=== PATIENT | female | born 2000 | race Hispanic/Latino ===

== ENCOUNTER 2024-01-06 02:23 | Emergency (ER) | payer OTHER, SELFPAY ==
[2024-01-06 02:23] VITALS: BMI 36.1
[2024-01-06 02:28] VITALS: BP 137/84
[2024-01-06 02:38] VITALS: BP 110/77
--- NOTE | 2024-01-06 02:50 | ED.GENMED ---
History of Present Illness
<TRIPP Kamara - Last Filed: 01/06/24 06:13>
General
Chief Complaint: Abdominal Symptoms
Source: patient
Exam Limitations: none
Time Seen by Provider: 01/06/24 02:36
Nursing documentation reviewed up to this point in time: agreed with
History of Present Illness
History of Present Illness:
This is a 23 year old female who is currently 32 weeks , who presents to the ED c/o nausea and vomiting x 7 hours. Pt states she has had 4-5 episodes of emesis with associated diarrhea with each episode. She has also had intermittent
abdominal pain across her whole abdomen. Pt notes she has also had a JAMES and dizziness since her symptoms started. Pt has a doppler for heart tones at home and she recorded 192 bpm when she last checked. She also feels as though her baby is
moving a lot more than usual. She denies any fever, CP, SOB, dysuria, hematuria, constipation, or vaginal bleeding.
<Otilio Bejarano DO - Last Filed: 01/06/24 05:49>
Travel History
Have you had any contact with someone who has COVID-19?: No
Do you have any symptoms of coronavirus? Fever > 100 degrees, chills, cough, shortness of breath, sore throat, loss of taste or smell, muscle aches, or headache?: No
Past History
<TRIPP Kamara - Last Filed: 01/06/24 06:13>
Social History
Drug: None
<Otilio Bejarano DO - Last Filed: 01/06/24 05:49>
Past History
ED Past Medical History: Asthma
ED Past Surgical History: None
Social History
Tobacco: Non-smoker
Alcohol: None
Personal: Single
Living: with family
Employment: Employed
Review of Systems
<TRIPP Kamara - Last Filed: 01/06/24 06:13>
Review of Systems
Allergies reviewed?: Yes
All Other Systems: ROS reviewed and negative except as documented in HPI and ROS
Constitutional: Reports no symptoms; Denies fever
EENT: Reports no symptoms
Respiratory: Reports no symptoms; Denies trouble breathing
Cardiac: Reports no symptoms; Denies chest pain
ABD/GI: Reports abdominal pain, nausea, vomiting and diarrhea; Denies constipated or bloody stools
: Reports no symptoms; Denies dysuria
Musculoskeletal: Reports no symptoms
Skin: Reports no symptoms
Neurological: Reports dizzy and headache
Psychiatric: Reports no symptoms
Phy Exam
<Jose Bartlettgala [facility] Last Filed: 01/06/24 06:13>
General Physical Exam
General Presentation: no apparent distress
General age: appears stated age
General Skin: warm and dry
General Habitus: normal
General Mental: alert
General Hydration: dry mucous membranes
ENT Exam
ENT Exam: EOMI, pharynx normal, neck supple, normocephalic and swallowing well
Cardiovascular Exam
Cardiovascular Exam: no edema, no murmur, normal peripheral pulses and tachycardia
Pulmonary Exam
Pulmonary Exam: lungs clear, no respiratory distress, no rales, no crackles, no rhonchi, no wheezing and no cough
Gastrointestinal Exam
Gastrointestinal Exam: soft, tender (diffusely tender) and other (no guarding, rebound, and rigidity)
Neurological Exam
Neurological Exam: alert and oriented x3
Musculoskeletal Exam
Musculoskeletal Exam: full ROM and no edema
Skin Exam
Skin Exam: normal color and warm/dry
Psychiatric Exam
Psychiatric Exam: normal mood/affect
Course
<Jose Dhruvritathao [facility] Last Filed: 01/06/24 06:13>
Orders/Labs/Results
Orders:
Orders
01/06/24 02:49
Doppler Heart Tones- Non-LDRP As Directed
Frequency: Once
01/06/24 03:17
COVID-19 Antigen Urgent
Source: Nasal Swab
Complete Blood Count/With Diff Urgent
Comprehensive Metabolic Panel Urgent
Influenza A+B Rapid Molecular Urgent
KYAW Source: Nasal Swab
Specimen Description:
01/06/24 05:21
0.9% Sodium Chloride 500 ml [Nss] 500 ml IV BOLUS
Ondansetron Injectable [Zofran] 4 mg IV NOW STA
Abnormal Lab Results
01/06/24
03:17
RBC 3.75 L 10^6/uL
(4.20-5.40)
Hgb 11.3 L g/dL
(12.0-16.0)
Hct 33.0 L %
(37.0-47.0)
Abs Immat Gran (auto) 0.2 H 10^3/uL
(0-0.05)
Absolute Neuts (auto) 8.2 H 10^3/uL
(1.4-6.5)
Absolute Lymphs (auto) 0.5 L 10^3/uL
(1.2-3.4)
Immature Gran % 1.7 H %
(0-0.5)
Neutrophils % 86.7 H %
(42.2-75.2)
Lymphocytes % 4.8 L %
(20.5-51.1)
Creatinine 0.3 L mg/dL
(0.6-1.0)
Glucose 123 H mg/dl
(70-99)
Albumin 3.4 L g/dl
(3.5-5.0)
01/06/24 03:17
01/06/24 03:17
Vital Signs
Initial and Last Documented VS:
Initial Vital Signs
Temp Pulse Resp BP Pulse Ox
98.7 F 126 18 137/84 97
01/06/24 02:28 01/06/24 02:28 01/06/24 02:28 01/06/24 02:28 01/06/24 02:28
Last Documented Vital Signs
Temp Pulse Resp BP Pulse Ox
98.7 F 130 19 118/76 97
01/06/24 02:28 01/06/24 05:30 01/06/24 05:45 01/06/24 05:00 01/06/24 02:28
<Otilio Bejarano, DO - Last Filed: 01/06/24 05:49>
Orders/Labs/Results
Orders:
Orders
01/06/24 02:49
Doppler Heart Tones- Non-LDRP As Directed
Frequency: Once
01/06/24 03:17
COVID-19 Antigen Urgent
Source: Nasal Swab
Complete Blood Count/With Diff Urgent
Comprehensive Metabolic Panel Urgent
Influenza A+B Rapid Molecular Urgent
KYAW Source: Nasal Swab
Specimen Description:
01/06/24 05:21
0.9% Sodium Chloride 500 ml [Nss] 500 ml IV BOLUS
Ondansetron Injectable [Zofran] 4 mg IV NOW STA
Abnormal Lab Results
01/06/24
03:17
RBC 3.75 L 10^6/uL
(4.20-5.40)
Hgb 11.3 L g/dL
(12.0-16.0)
Hct 33.0 L %
(37.0-47.0)
Abs Immat Gran (auto) 0.2 H 10^3/uL
(0-0.05)
Absolute Neuts (auto) 8.2 H 10^3/uL
(1.4-6.5)
Absolute Lymphs (auto) 0.5 L 10^3/uL
(1.2-3.4)
Immature Gran % 1.7 H %
(0-0.5)
Neutrophils % 86.7 H %
(42.2-75.2)
Lymphocytes % 4.8 L %
(20.5-51.1)
Creatinine 0.3 L mg/dL
(0.6-1.0)
Glucose 123 H mg/dl
(70-99)
Albumin 3.4 L g/dl
(3.5-5.0)
01/06/24 03:17
01/06/24 03:17
Vital Signs
Initial and Last Documented VS:
Initial Vital Signs
Temp Pulse Resp BP Pulse Ox
98.7 F 126 18 137/84 97
01/06/24 02:28 01/06/24 02:28 01/06/24 02:28 01/06/24 02:28 01/06/24 02:28
Last Documented Vital Signs
Temp Pulse Resp BP Pulse Ox
98.7 F 130 19 118/76 97
01/06/24 02:28 01/06/24 05:30 01/06/24 05:45 01/06/24 05:00 01/06/24 02:28
<TRIPP Kamara - Last Filed: 01/06/24 06:13>
*Critical Care Note
Total Time (30-74mins, 75-104mins- exclusive of procedures): Not Applicable
<Otilio Bejarano DO - Last Filed: 01/06/24 05:49>
ED Attending Note
Patient seen and examined by attending physician: Yes
I performed the substantive portion of visit, reviewed & personally made and approve the management plan that is documented in note by myself or EFREN.: Yes
ED Attending Note:
Pleasant 23-year-old female who is 32 weeks presents with nausea and vomiting since 4 PM. She states that she has had 4-5 bouts of emesis with some nonbloody diarrhea. Patient is followed by Dr. Jones and states that she has had normal
checkups thus far. She states that she still feels the baby move. She denies any vaginal bleeding or discharge. She, at the time of exam states that her symptoms have resolved. Patient denies any previous medical history. Patient was
seen in conjunction with the PA student. I have reviewed and agree with the history and treatment plan presented. On my independent physical exam, patient is awake, alert, and oriented x3, no acute distress. Heart is regular rate and rhythm.
Lungs clear to auscultation bilaterally. Abdomen is gravid appearing. Moves all [address] Bowling to discuss patient's symptoms including cramping. Discussed lab work and patient will go upstairs to be monitored.
-
Portions of this chart may have been created with voice recognition software.� Occasional wrong word or��sound alike� substitutions may have occurred due to the inherent limitations of voice recognition software.
Discharge Plan
Departure
Patient Disposition: LDRP
Date of Disposition: 01/06/24
Time of Disposition: 05:48
Admit to doctor: Dr. Bowling
Presentation/result/management discussed w/ accepting MD/DO: Hospitalist
Patient with high blood pressure during this ER visit?: Yes
Condition: Good
Discharge Problem:
Nausea & vomiting, , Abdominal cramping
Prescriptions:
No Action
No Current Medications
0
Referrals:
Carie Washington MD [Family Provider] -
Interventions
Interventions:
*Risk Screen - Suicide Last Done: 01/06/24 03:57
*General Assessment Last Done: 01/06/24 03:57
*Neglect/Abuse Screening Last Done: 01/06/24 03:57
*ED COVID-19 Vaccine History Last Done: 01/06/24 02:28
ZP-Lxrphn-Btucdsmcdv Assessment Last Done: 01/06/24 03:57
[2024-01-06 03:00] VITALS: BP 110/69
[2024-01-06 03:27] LABS: % Basophils 0.2 % (0-2); % Eosinophils 0.4 % (0-6); % Immature Granulocytes 1.7 % (0-0.5); % Lymphocytes 4.8 % (20.5-51.1); % Monocytes 6.2 % (1.7-9.3); % Neutrophils 86.7 % (42.2-75.2); Absolute Immature Granulocytes 0.2 10^3/uL (0-0.05); Absolute Lymphocytes 0.5 10^3/uL (1.2-3.4); Absolute Monocytes 0.6 10^3/uL (0.1-0.6); Absolute Neutrophils 8.2 10^3/uL (1.4-6.5); Hemoglobin 11.3 g/dL (12.0-16.0); Mean Corp Hgb Conc. 34.2 g/dL (33.0-37.0); Mean Corpuscular Hgb 30.1 pg (27.0-31.0); Mean Platelet Volume 10.3 fL (7.4-10.4); Nucleated Red Blood Cells % 0 %; Platelet Count 274 10^3/uL (130-400); Red Blood Cell Count 3.75 10^6/uL (4.20-5.40); Red Cell Dist. Width 12.7 % (11.5-14.5); White Blood Cell Count 9.5 10^3/uL (4.8-10.8)
[2024-01-06 03:42] LABS: ALT (SGPT) 16 U/L (0-35); AST (SGOT) 21 U/L (14-36); Albumin 3.4 g/dl (3.5-5.0); Alkaline Phosphatase 121 U/L (38-126); Blood Urea Nitrogen 10 mg/dl (7-17); Carbon Dioxide 22 mmol/L (22-30); Chloride 105 mmol/L (98-107); Glucose 123 mg/dl (70-99); Potassium 3.7 mmol/L (3.5-5.1); Sodium 136 mmol/L (135-145); Total Bilirubin 1.3 mg/dl (0.2-1.3); Total Protein 6.6 g/dl (6.3-8.2); eGFR > 60.00
[2024-01-06 03:44] LABS: COVID-19 Antigen Negative (Negative)
[2024-01-06 04:00] VITALS: BP 122/81
[2024-01-06 05:00] VITALS: BP 118/76
[2024-01-06] MEDS: NSS 500 IV (05:26)
[2024-01-06] MEDS: ZOFRAN 4 MG IV (05:27)
[2024-01-06 06:00] VITALS: BP 116/78
== END 2024-01-06 06:16 ==
LOC: EMR 02:23
PROVIDERS: EMERGENCY PHYSICIAN Student in an Organized Health Care Education/Training Program; FAMILY PHYSICIAN Family Medicine
DX: O26.893 Other specified pregnancy related conditions, third trimester (principal); O21.2 Late vomiting of pregnancy; R03.0 Elevated blood-pressure reading, without diagnosis of hypertension; Z3A.32 32 weeks gestation of pregnancy; Z11.52 Encounter for screening for COVID-19
CPT/HCPCS: 99284; 96374; 96361; 80053; 85025; 87502; 87811

== ENCOUNTER 2024-01-06 05:50 | Observation (INO) | payer MEDICAID, OTHER, SELFPAY ==
[2024-01-06 06:11] VITALS: BP 128/72; BMI 33.9
[2024-01-06 08:33] LABS: Urine Albumin Trace (Neg - Trace); Urine Bilirubin Negative (Negative); Urine Character Clear (Clear); Urine Color Yellow; Urine Glucose Trace (Negative); Urine Ketone 3+ (Negative); Urine Leukocyte Negative (Negative); Urine Nitrite Negative (Negative); Urine Occult Blood Negative (Negative); Urine Specific Gravity 1.025 (<1.030); Urine Urobilinogen 1+ (Neg - 1+)
== END 2024-01-06 07:15 | disposition home or self-care (01) ==
LOC: LDRP 05:50
PROVIDERS: ADMITTING PHYSICIAN Obstetrics & Gynecology; FAMILY PHYSICIAN Family Medicine
DX: R11.2 Nausea with vomiting, unspecified (principal); R19.7 Diarrhea, unspecified; R10.9 Unspecified abdominal pain; O99.013 Anemia complicating pregnancy, third trimester; D64.9 Anemia, unspecified; Z3A.31 31 weeks gestation of pregnancy; Z91.013 Allergy to seafood; Z82.49 Family history of ischemic heart disease and other diseases of the circulatory system
CPT/HCPCS: 81003; 87086

== ENCOUNTER → 2024-02-14 14:27 | Outpatient (REF) | payer OTHER, SELFPAY ==
[2024-02-14 15:26] LABS: ALT (SGPT) 33 U/L (0-35); AST (SGOT) 31 U/L (14-36)
[2024-02-16 17:04] LABS: Bile Acids (Cholylglycine) 11 umol/L (0-10)
== END ==
LOC: REG 14:27
PROVIDERS: ATTENDING PHYSICIAN Obstetrics & Gynecology; FAMILY PHYSICIAN Family Medicine
DX: Z34.93 Encounter for supervision of normal pregnancy, unspecified, third trimester (principal)
CPT/HCPCS: 36415; 82239; 84450; 84460

== ENCOUNTER → 2024-02-23 13:57 | Outpatient (REF) | payer OTHER, SELFPAY | LOC: PNTC 13:57 | PROVIDERS: ATTENDING PHYSICIAN Obstetrics & Gynecology | DX: O36.8190 Decreased fetal movements, unspecified trimester, not applicable or unspecified (principal) | CPT/HCPCS: 59025; 76815 ==

== ENCOUNTER 2024-02-25 21:52 | Inpatient (IN) | payer OTHER, SELFPAY ==
[2024-02-25 22:07] VITALS: BP 132/86; BMI 37.2
[2024-02-25] MEDS: CYTOTEC 25 MICROGRAM VAG (22:39)
[2024-02-25 22:41] LABS: % Basophils 0.2 % (0-2); % Immature Granulocytes 1.1 % (0-0.5); % Lymphocytes 20.6 % (20.5-51.1); % Monocytes 9.2 % (1.7-9.3); % Neutrophils 67.9 % (42.2-75.2); Absolute Eosinophils 0.1 10^3/uL (0-0.7); Absolute Immature Granulocytes 0.1 10^3/uL (0-0.05); Absolute Lymphocytes 1.7 10^3/uL (1.2-3.4); Absolute Monocytes 0.8 10^3/uL (0.1-0.6); Absolute Neutrophils 5.5 10^3/uL (1.4-6.5); Hematocrit 30.2 % (37.0-47.0); Hemoglobin 10.7 g/dL (12.0-16.0); Mean Corp Hgb Conc. 35.4 g/dL (33.0-37.0); Mean Corpuscular Hgb 29.6 pg (27.0-31.0); Mean Corpuscular Volume 83.7 fL (81.0-99.0); Mean Platelet Volume 10.2 fL (7.4-10.4); Nucleated Red Blood Cells % 0 %; Platelet Count 303 10^3/uL (130-400); Red Blood Cell Count 3.61 10^6/uL (4.20-5.40); Red Cell Dist. Width 13.2 % (11.5-14.5); White Blood Cell Count 8.1 10^3/uL (4.8-10.8)
[2024-02-25 23:16] LABS: ALT (SGPT) 18 U/L (0-35); AST (SGOT) 27 U/L (14-36); Albumin 3.4 g/dl (3.5-5.0); Alkaline Phosphatase 217 U/L (38-126); Blood Urea Nitrogen 10 mg/dl (7-17); Calcium 9.3 mg/dl (8.4-10.2); Carbon Dioxide 20 mmol/L (22-30); Chloride 109 mmol/L (98-107); Estimated Creatinine Clearance > 125 ml/min; Glucose 134 mg/dl (70-99); Potassium 3.8 mmol/L (3.5-5.1); Sodium 133 mmol/L (135-145); Total Bilirubin 0.5 mg/dl (0.2-1.3); Total Protein 6.3 g/dl (6.3-8.2); eGFR > 60.00
[2024-02-26] MEDS: CYTOTEC 50 MICROGRAM PO (03:08)
[2024-02-26] MEDS: LR 1000 IV ×3 (03:09→17:56)
[2024-02-26] MEDS: CYTOTEC PO ×5 (10:18→22:46)
[2024-02-26] MEDS: MILK OF MAGNESIA 30 ML PO (10:53)
[2024-02-26] MEDS: PITOCIN 30 UNITS/NSS 500 ML IV (10:54)
[2024-02-26] MEDS: PENICILLIN 110 UNITS IV (16:26)
[2024-02-26] MEDS: PENICILLIN IV (16:28)
[2024-02-26] MEDS: TYLENOL 650 MG PO (19:21)
[2024-02-26] MEDS: PENICILLIN 55 UNITS IV (20:32)
[2024-02-26] MEDS: FENTANYL/BUPIVACAINE 100 EPIDURAL (22:59)
[2024-02-26] MEDS: SUBLIMAZE 100 MCG EPIDURAL (22:59)
[2024-02-27] MEDS: LR 1000 IV ×2 (00:15→03:20)
[2024-02-27] MEDS: PENICILLIN 55 UNITS IV ×2 (00:34→04:14)
[2024-02-27] MEDS: PITOCIN 30 UNITS/NSS 500 ML IV (04:38)
[2024-02-27] MEDS: HEMABATE 250 MCG IM (05:10)
[2024-02-27] MEDS: PRENATAL PLUS 1 TABLET PO (08:10)
[2024-02-27 15:43] LABS: Hematocrit 22.7 % (37.0-47.0)
[2024-02-27 15:46] LABS: Hemoglobin 7.9 g/dL (12.0-16.0)
[2024-02-27] MEDS: FEOSOL 325 MG PO (19:48)
[2024-02-28 05:27] LABS: Hematocrit 19.6 % (37.0-47.0); Hemoglobin 6.8 g/dL (12.0-16.0)
[2024-02-28] MEDS: SENOKOT-S 1 TABLET PO (08:31)
[2024-02-28] MEDS: FEOSOL 325 MG PO ×2 (08:31→19:46)
[2024-02-28] MEDS: PRENATAL PLUS 1 TABLET PO (08:31)
[2024-02-28 14:34] LABS: Syphilis/T. pallidum Ab Reflex Negative (Negative)
[2024-02-29] MEDS: FEOSOL 325 MG PO (08:34)
[2024-02-29] MEDS: PRENATAL PLUS 1 TABLET PO (08:35)
[2024-02-29] MEDS: M-M-R II 0.5 ML SC (08:37)
--- NOTE | 2024-03-07 19:34 | W.DS.TRANS ---
DC Summary - Nurse Extern
-
Discharge Instructions:
Discharge Diagnosis/Procedures term , delivered; hemorrhage
; anemia
Instructions:
Stand-Alone Forms: LDRP Vaginal Delivery
Changes to Home Medications: No
Discharge Medications:
DC Medications w/original date entered in [id number]
prenat.vits,rosalva,yet-fglp-kyeit 1 tab PO DAILY Supplement 01/06/24
acetaminophen 325 mg tablet 650 mg (2 x 325 mg) PO Q4HPRN PRN mild pain #0 tabs 02/29/24
ferrous sulfate 325 mg (65 mg iron) tablet (FeroSul) 325 mg PO BID #0 tabs 02/29/24
ibuprofen 200 mg capsule 600 mg (3 x 200 mg) PO Q6HPRN PRN moderate pain/cramps #0 caps 02/29/24
sennosides 8.6 mg-docusate sodium 50 mg tablet (Stool Softener-Stimulant Laxative) 1 tab PO DAILYPRN PRN constipation #0 tabs 02/29/24
Home Medication Changes
Pending Results: No
Total time spent discharging patient (in min): 20
== END 2024-02-29 12:09 | disposition home or self-care (01) | DRG 805 ==
LOC: LDRP 21:52
PROVIDERS: Obstetrics & Gynecology; ADMITTING PHYSICIAN Obstetrics & Gynecology; FAMILY PHYSICIAN Family Medicine
PROC: 3E0P7VZ Introduction of Hormone into Female Reproductive, Via Natural or Artificial Opening (ICD-10-PCS; 2024-02-25)
PROC: 3E0DXGC Introduction of Other Therapeutic Substance into Mouth and Pharynx, External Approach (ICD-10-PCS; 2024-02-26)
PROC: 3E033VJ Introduction of Other Hormone into Peripheral Vein, Percutaneous Approach (ICD-10-PCS; 2024-02-26)
PROC: 10E0XZZ Delivery of Products of Conception, External Approach (ICD-10-PCS; 2024-02-27)
PROC: 0KQM0ZZ Repair Perineum Muscle, Open Approach (ICD-10-PCS; 2024-02-27)
PROC: 3E0134Z Introduction of Serum, Toxoid and Vaccine into Subcutaneous Tissue, Percutaneous Approach (ICD-10-PCS; 2024-02-29)
DX: O26.643 Intrahepatic cholestasis of pregnancy, third trimester (principal); K83.1 Obstruction of bile duct; Z37.0 Single live birth; O72.2 Delayed and secondary postpartum hemorrhage; O69.81X0 Labor and delivery complicated by cord around neck, without compression, not applicable or unspecified; O76 Abnormality in fetal heart rate and rhythm complicating labor and delivery; Z3A.38 38 weeks gestation of pregnancy; O70.1 Second degree perineal laceration during delivery; O99.824 Streptococcus B carrier state complicating childbirth; O62.2 Other uterine inertia; J45.909 Unspecified asthma, uncomplicated; O99.02 Anemia complicating childbirth; D64.9 Anemia, unspecified; O99.344 Other mental disorders complicating childbirth; F41.9 Anxiety disorder, unspecified; Z23 Encounter for immunization; Z91.013 Allergy to seafood; Z83.3 Family history of diabetes mellitus; Z82.49 Family history of ischemic heart disease and other diseases of the circulatory system; Z84.1 Family history of disorders of kidney and ureter
CPT/HCPCS: 88307; 36415; 59025; 80053; 85014; 85018; 85025; 86780; 86850; 86900; 86901; 90707